=== PATIENT | male | born 1945 | race Caucasian/White ===

== ENCOUNTER 2017-04-01 21:10 | Emergency (ER) | payer MEDICARE, OTHER ==
[~2017-04-01] VITALS: Ht 172.7 cm; Wt 78.0 kg
[2017-04-01 21:12] VITALS: Ht 172.7 cm; Wt 78.0 kg
[2017-04-01 21:17] VITALS: TEMP 97.6
[2017-04-01] MEDS ORDERED: morphine 10 MG INJ IM ONE (22:00)
--- NOTE | 2017-04-01 22:26 | ERD ---
ER Documentation Chief Complaint Date/Time DATE: 04/01/17 TIME: 22:11 Chief Complaint pt was washing dishes and cut hand HPI 71-year-old male presents to emergency department for laceration wound is bleeding heavily on the right hand, in between the right fourth and fifth finger. Patient was accidentally cut by a metal glass, denies any foreign body in affected area. Patient is able to move the joint without any difficulty. Patient denies any foreign body sensation. Able to do full range of motion of the right fourth and fifth finger without any restriction. Patient's last tetanus immunization was one year ago. Patient denies any numbness or tingling. Patient is worried it continuously is pulsating bleeding. ROS All systems reviewed and are negative except as per history of present illness. Medications Home Meds Reported Medications [none] Unknown Strength No Conflict Check 04/01/17 Allergies Allergies: Coded Allergies: No Known Allergy (Unverified , 04/01/17) PMhx/Soc last immunization was 1 year Medical and Surgical Hx: pt denies Medical Hx, pt denies Surgical Hx FmHx Family History: No coronary disease, No diabetes, No other Physical Exam Vitals Vital Signs Date Time Temp Pulse Resp B/P Pulse Ox O2 Delivery O2 Flow Rate FiO2 04/01/17 21:17 97.6 89 16 179/99 97 Room Air Physical Exam GENERAL: The patient is well developed and appropriate for usual state of health, in no apparent distress. CHEST: Clear to auscultation bilaterally. There are no rales, wheezes or rhonchi. HEART: Regular rate and rhythm. No murmurs, clicks, rubs or gallops. No S3 or S4. ABDOMEN: Soft, nontender and nondistended. Good bowel sounds. No rebound or guarding. No gross peritonitis. No gross organomegaly or masses. No Fowler sign or McBurney point tenderness. BACK: No midline or flank tenderness. EXTREMITIES: Equal pulses bilaterally. There is no peripheral clubbing, cyanosis or edema. No focal swelling or erythema. Full range of motion. Grossly neurovascularly intact. NEURO: Alert and oriented. Cranial nerves 2-12 intact. Motor strength in all 4 extremities with 5/5 strength. Sensation grossly intact. Normal speech and gait. SKIN: 3 cm in the webspace of the fourth and fifth finger noted, there was a bleeding artery noted, pulsating.no tendon involvement. No bone involvement There is no apparent rash or petechia. The skin is warm and dry. HEMATOLOGIC AND LYMPHATIC: There is no evidence of excessive bruising or lymphedema. No gross cervical, axillary, or inguinal lymphadenopathy. Results 24 hrs Current Medications Medications (Trade) Dose Ordered Sig/Neymar Route PRN Reason Start Time Stop Time Status Last Admin Dose Admin Morphine Sulfate (morphine) 4 mg ONCE ONCE IM 04/01/17 22:00 04/01/17 22:01 DC 04/01/17 21:49 "Patient was given medication for pain here in emergency department, after treatment, patient verbalized feeling much better. Patient's pain is improved. Ancef was given to prevent infection on affected area. Procedures/MDM Procedure Note: After obtaining informed consent, the wound was irrigated with 250 ml of normal saline and cleaned with diluted betadine. Using aseptic technique, 3 ml of 1% lidocaine was injected on the subcutaneous tissue of the laceration wound for anesthetic. After the anesthetic, multiple interrupted sutures using 5-0 Vicryl was done to stop the arterial bleed on affected area, then 5 interrupted sutures of 3-0 Prolene was used to close the laceration wound. After the procedure, the wound was well approximated. Patient had a vasovagal syndrome after while on procedure. After oxygen and deep breathing, patient felt much better, stable vital signs afterwards. Bacitracin was applied on the area and a dry dressing. Medical decision making: Patient's symptoms most likely consistent with a laceration wound, it was repaired without any difficulty. the bleeding was stopped using multiple interrupted sutures of vicryl. No symptoms of any neurovascular compromise. No foreign body. No tendon involvement, no joint involvement. Disposition: Home. Condition. Stable Prescription Keflex, ibuprofen. Instructions: Patient is advised to take medications as prescribed. Patient was advised to have wound checked in 2 days and suture/ staple removal in 7-10 days. Patient is advised that if there are signs and symptoms of infection, redness, swelling, fever or chills, worsening symptoms to return to emergency room immediately. Otherwise, patient can follow up with primary care doctor in 2 days for reevaluation of symptoms. Departure Diagnosis: Primary Impression: Hand laceration Encounter type: initial encounter Foreign body presence: unspecified Laterality: right Qualified Code: S61.411A - Laceration of right hand, foreign body presence unspecified, initial encounter Additional Impression: Vaso vagal episode Condition: Stable Patient Instructions: Laceration, Hand, Near Syncope, Vasovagal Additional Instructions: Patient is advised to take medications as prescribed. Patient was advised to have wound checked in 2 days and suture/ staple removal in 7-10 days. Patient is advised that if there are signs and symptoms of infection, redness, swelling , fever or chills, worsening symptoms to return to emergency room immediately. Otherwise, patient can follow up with primary care doctor in 2 days for reevaluation of symptoms. CECILIA DOS SANTOS NP Apr 01, 2017 22:23
[2017-04-01] MEDS ORDERED: CEPH-443 PO (22:28)
[2017-04-01] MEDS ORDERED: ACET500C5 PO (22:28)
[2017-04-01] MEDS ORDERED: CEFAZOLIN 1 GM INJ IM ONE (22:30)
[2017-04-01] MEDS ORDERED: LIDOCAINE 1% (MDV) 20 ML INJ SC ONE (22:30)
[2017-04-01 23:15] VITALS: BP 140/77; PULSE 68; RESP 16
== END 2017-04-01 23:36 | disposition home or self-care (01) ==
LOC: FTE 21:10
DX: S61.411A Laceration without foreign body of right hand, initial encounter (principal); W25.XXXA Contact with sharp glass, initial encounter; Y92.9 Unspecified place or not applicable
CPT/HCPCS: 12002; 96372; 99284; J0690; J2270

== ENCOUNTER 2017-04-11 14:18 | Emergency (ER) | payer MEDICARE ==
[~2017-04-11] VITALS: Ht 172.7 cm; Wt 79.5 kg
[~2017-04-11 14:18] MED LIST: ACET500C5 PO; CEPH-443 PO
[2017-04-11 14:21] VITALS: Ht 172.7 cm; Wt 79.5 kg
--- NOTE | 2017-04-13 04:12 | ERD ---
ER Documentation Chief Complaint Date/Time DATE: 04/13/17 TIME: 04:11 Chief Complaint suture removal right pinky finger HPI This patient is a 71-year-old male presenting to the emergency department for suture removal from his right pinky finger. He denies all complaints currently. ROS All systems reviewed and are negative except as per history of present illness. Medications Home Meds Active Scripts Acetaminophen* (Tylophen*) 500 Mg Capsule, 1 CAP PO Q6H Y for PAIN AND OR ELEVATED TEMP, #20 CAP Prov:CECILIA DOS SANTOS NP 04/01/17 Cephalexin* (Keflex*) 500 Mg Capsule, 500 MG PO QID for 5 Days, CAP Prov:CECILIA DOS SANTOS [employer] 04/01/17 Reported Medications [none] Unknown Strength No Conflict Check 04/01/17 Allergies Allergies: Coded Allergies: No Known Allergy (Unverified , 04/01/17) PMhx/Soc History of Surgery: No Anesthesia Reaction: No Hx Neurological Disorder: No Hx Respiratory Disorders: No Hx Cardiac Disorders: No Hx Psychiatric Problems: No Hx Miscellaneous Medical Probl: No Hx Alcohol Use: No Hx Substance Use: No Hx Tobacco Use: No Smoking Status: Never smoker Physical Exam Vitals Vital Signs Date Time Temp Pulse Resp B/P Pulse Ox O2 Delivery O2 Flow Rate FiO2 04/11/17 14:21 97.9 72 18 163/74 96 Physical Exam Const: Nontoxic, well-appearing male in no acute distress. Head: Atraumatic Eyes: Normal Conjunctiva ENT: Normal External Ears, Nose and Mouth. Ext: No cyanosis, or edema. There are sutures in place about the right pinky finger. Neur: Awake and alert Psych: Normal Mood and Affect Procedures/MDM 71-year-old male presents for suture removal to his right pinky finger. Suture Removal by me: Sutures removed with tweezers and scissors without incident. Wound shows no evidence of infection, foreign body, neurologic injury, vascular injury, open joint or tendon laceration. Patient to follow up PRN. Departure Diagnosis: Primary Impression: Encounter for removal of sutures Condition: Fair Patient Instructions: Suture Removal, No Complication Referrals: [facility], [facility] Additional Instructions: No mas mejor en 2-3 ruiz, regresar. Mas peor en 24 horas, regresear rapidamente. Ir a doctor primario in 5-7 ruiz. Usar instrucciones cuando richie medicamento. TONY GALVEZ PA-C Apr 13, 2017 04:12
== END 2017-04-11 17:41 | disposition home or self-care (01) ==
LOC: FTE 14:18
DX: Z48.02 Encounter for removal of sutures (principal)
CPT/HCPCS: 99281